=== PATIENT | female | born 1960 | race Two or more races ===

== ENCOUNTER 2018-01-22 10:36 | Outpatient (CLI) | payer OTHER | END 2018-01-22 10:47 | disposition home or self-care (01) | LOC: MAMO-SONO 10:36 | DX: N60.11 Diffuse cystic mastopathy of right breast (principal); N60.12 Diffuse cystic mastopathy of left breast; Z12.31 Encounter for screening mammogram for malignant neoplasm of breast ==

== ENCOUNTER 2018-01-22 11:58 | Outpatient (CLI) | payer OTHER | END 2018-01-22 12:30 | disposition home or self-care (01) | LOC: NUCLEAR 11:58 | DX: M85.88 Other specified disorders of bone density and structure, other site (principal) ==

== ENCOUNTER 2018-08-10 21:44 | Emergency (ER) | payer OTHER ==
[~2018-08-10] VITALS: Ht 162.6 cm; Wt 68.9 kg
[2018-08-10] MEDS ORDERED: ZOCOR5 MG (22:04)
[2018-08-10] MEDS ORDERED: ARICEPT5 MG (22:04)
[2018-08-10] MEDS ORDERED: LEXAPRO5 MG (22:04)
[2018-08-10] MEDS ORDERED: LAMICTAL25 MG (22:05)
[2018-08-10] MEDS ORDERED: NATURE-THROI16.25 MG (22:05)
== END 2018-08-11 00:44 | disposition home or self-care (01) ==
LOC: ER 21:44
DX: R10.2 Pelvic and perineal pain (principal)

== ENCOUNTER 2019-05-06 08:26 | Outpatient (CLI) | payer OTHER ==
[~2019-05-06 08:26] MED LIST: ARICEPT5 MG; LAMICTAL25 MG; LEXAPRO5 MG; NATURE-THROI16.25 MG; ZOCOR5 MG
== END 2019-05-06 08:28 | disposition home or self-care (01) ==
LOC: MAMO-SONO 08:26
DX: Z12.31 Encounter for screening mammogram for malignant neoplasm of breast (principal); Z87.898 Personal history of other specified conditions; N60.11 Diffuse cystic mastopathy of right breast; N60.12 Diffuse cystic mastopathy of left breast

== ENCOUNTER 2020-07-13 13:19 | Outpatient (CLI) | payer OTHER ==
[~2020-07-13 13:19] MED LIST changes: +LATUDA20 MG; +LIPITOR20 MG
== END 2020-07-13 13:24 | disposition home or self-care (01) ==
LOC: NUCLEAR 13:19
PROVIDERS: ATTEND Obstetrics & Gynecology
DX: M81.0 Age-related osteoporosis without current pathological fracture (principal)

== ENCOUNTER 2020-07-13 14:26 | Outpatient (CLI) | payer OTHER | END 2020-07-13 14:28 | disposition home or self-care (01) | LOC: MAMO-SONO 14:26 | PROVIDERS: ATTEND Obstetrics & Gynecology | DX: Z12.31 Encounter for screening mammogram for malignant neoplasm of breast (principal); N60.11 Diffuse cystic mastopathy of right breast; N60.12 Diffuse cystic mastopathy of left breast ==

== ENCOUNTER 2020-07-13 14:31 | Outpatient (CLI) | payer OTHER | END 2020-07-13 15:00 | disposition home or self-care (01) | LOC: LAB 14:31 | PROVIDERS: ATTEND Obstetrics & Gynecology | DX: E03.8 Other specified hypothyroidism (principal); N95.1 Menopausal and female climacteric states; R89.1 Abnormal level of hormones in specimens from other organs, systems and tissues; D64.89 Other specified anemias; E55.9 Vitamin D deficiency, unspecified; E78.49 Other hyperlipidemia; M81.6 Localized osteoporosis [Lequesne] ==

== ENCOUNTER 2021-08-12 07:46 | Day surgery (SDC) | payer OTHER | END 2021-08-12 12:20 | disposition home or self-care (01) | LOC: AMB-ENDOS 07:46 | PROVIDERS: ATTEND Colon & Rectal Surgery | DX: K62.89 Other specified diseases of anus and rectum (principal); K64.1 Second degree hemorrhoids; Z20.822 Contact with and (suspected) exposure to COVID-19 ==

== ENCOUNTER 2021-08-17 12:47 | Outpatient (CLI) | payer OTHER | END 2021-08-17 13:11 | disposition home or self-care (01) | LOC: MAMO-SONO 12:47 | PROVIDERS: ATTEND Obstetrics & Gynecology | DX: N60.11 Diffuse cystic mastopathy of right breast (principal); N60.12 Diffuse cystic mastopathy of left breast ==

== ENCOUNTER 2022-10-19 11:52 | Outpatient (CLI) | payer OTHER | END 2022-10-19 11:54 | disposition home or self-care (01) | LOC: NUCLEAR 11:52 | PROVIDERS: ATTEND Obstetrics & Gynecology | DX: M81.0 Age-related osteoporosis without current pathological fracture (principal); M89.8X0 Other specified disorders of bone, multiple sites ==

== ENCOUNTER 2022-10-19 12:39 | Outpatient (CLI) | payer OTHER | END 2022-10-19 12:51 | disposition home or self-care (01) | LOC: MAMO-SONO 12:39 | PROVIDERS: ATTEND Obstetrics & Gynecology | DX: N60.11 Diffuse cystic mastopathy of right breast (principal); N60.12 Diffuse cystic mastopathy of left breast ==

== ENCOUNTER 2023-11-07 10:30 | Outpatient (CLI) | payer OTHER | END 2023-11-07 10:39 | disposition home or self-care (01) | LOC: MAMO-SONO 10:30 | PROVIDERS: ATTEND Obstetrics & Gynecology | DX: N60.11 Diffuse cystic mastopathy of right breast (principal); N60.12 Diffuse cystic mastopathy of left breast; Z12.31 Encounter for screening mammogram for malignant neoplasm of breast ==

== ENCOUNTER 2024-11-25 10:59 | Outpatient (CLI) | payer OTHER | END 2024-11-25 11:05 | disposition home or self-care (01) | LOC: MAMO-SONO 10:59 | PROVIDERS: ATTEND Obstetrics & Gynecology | DX: N60.11 Diffuse cystic mastopathy of right breast (principal); N60.12 Diffuse cystic mastopathy of left breast; M25.561 Pain in right knee; M47.816 Spondylosis without myelopathy or radiculopathy, lumbar region ==

== ENCOUNTER 2024-12-01 08:48 | Outpatient (CLI) | payer OTHER | END 2024-12-01 08:49 | disposition home or self-care (01) | LOC: NUCLEAR 08:48 | PROVIDERS: ATTEND Obstetrics & Gynecology | DX: M81.0 Age-related osteoporosis without current pathological fracture (principal) ==

== ENCOUNTER → 2025-05-26 07:36 | Outpatient (CLI) | payer OTHER | END | disposition home or self-care (01) | LOC: NUCLEAR 05-05 07:00 | PROVIDERS: ATTEND Internal Medicine | DX: I25.110 Atherosclerotic heart disease of native coronary artery with unstable angina pectoris (principal) ==

== ENCOUNTER 2025-06-10 09:15 | Outpatient (CLI) | payer OTHER | END 2025-06-10 09:19 | disposition home or self-care (01) | LOC: RAD 09:15 | PROVIDERS: ATTEND Internal Medicine Pulmonary Disease | DX: E11.9 Type 2 diabetes mellitus without complications (principal); R06.00 Dyspnea, unspecified; E78.00 Pure hypercholesterolemia, unspecified; F32.A Depression, unspecified; E03.9 Hypothyroidism, unspecified; Z68.30 Body mass index [BMI] 30.0-30.9, adult; R09.82 Postnasal drip ==

== ENCOUNTER 2025-06-10 11:25 | Outpatient (CLI) | payer OTHER | END 2025-06-10 11:28 | disposition home or self-care (01) | LOC: NUCLEAR 11:25 | PROVIDERS: ATTEND Internal Medicine Pulmonary Disease | DX: R06.00 Dyspnea, unspecified (principal); F32.A Depression, unspecified; E78.00 Pure hypercholesterolemia, unspecified; E03.9 Hypothyroidism, unspecified; Z68.30 Body mass index [BMI] 30.0-30.9, adult ==